=== PATIENT | male | born 1970 | race Caucasian/White ===

== ENCOUNTER 2021-03-02 21:06 | Inpatient (IN) | payer OTHER, BC ==
[~2021-03-02] VITALS: Ht 170.2 cm; Wt 128.4 kg
[2021-03-02] MEDS ORDERED: KAPVAY0.1 MG PO (21:18)
[2021-03-02] MEDS ORDERED: LASIX20 MG PO (21:18)
[2021-03-02] MEDS ORDERED: HYDRALAZIN20 MG/1 ML IJ (21:19)
[2021-03-02] MEDS ORDERED: EFFER-K 10 MEQ10 MEQ PO (21:19)
== END 2021-03-05 12:31 | disposition home or self-care (01) | DRG 292 ==
LOC: ER 21:06 → MEDJ 03-03 10:21 → MEDI 03-03 10:21
PROVIDERS: ADMIT Internal Medicine; ATTEND Internal Medicine
PROC: 4A12X4Z Monitoring of Cardiac Electrical Activity, External Approach (ICD-10-PCS; principal; 2021-03-03)
DX: I13.0 Hypertensive heart and chronic kidney disease with heart failure and stage 1 through stage 4 chronic kidney disease, or unspecified chronic kidney disease (principal); I16.9 Hypertensive crisis, unspecified; L97.829 Non-pressure chronic ulcer of other part of left lower leg with unspecified severity; I25.10 Atherosclerotic heart disease of native coronary artery without angina pectoris; I50.9 Heart failure, unspecified; Z95.5 Presence of coronary angioplasty implant and graft; F41.9 Anxiety disorder, unspecified; E66.9 Obesity, unspecified; E11.622 Type 2 diabetes mellitus with other skin ulcer; E87.6 Hypokalemia; E11.22 Type 2 diabetes mellitus with diabetic chronic kidney disease; N18.9 Chronic kidney disease, unspecified; J10.1 Influenza due to other identified influenza virus with other respiratory manifestations; Z20.822 Contact with and (suspected) exposure to COVID-19

== ENCOUNTER 2021-04-24 07:50 | Outpatient (CLI) | payer OTHER, BC ==
[~2021-04-24 07:50] MED LIST: EFFER-K 10 MEQ10 MEQ PO; HYDRALAZIN20 MG/1 ML IJ; KAPVAY0.1 MG PO; LASIX20 MG PO
[2021-04-28] MEDS ORDERED: NEURONTIN600 MG PO (13:15)
[2021-04-28] MEDS ORDERED: CATAPRES0.3 MG PO (13:17)
[2021-04-28] MEDS ORDERED: SPIRONOLACTONE25 MG PO (13:17)
[2021-04-28] MEDS ORDERED: TAMS0.4C PO (13:18)
[2021-04-28] MEDS ORDERED: CLOPIDOGREL BIS75 MG PO (13:18)
[2021-04-28] MEDS ORDERED: CARVEDILOL12.5 MG PO (13:18)
[2021-04-28] MEDS ORDERED: ATORVASTATIN CA40 MG PO (13:19)
[2021-04-28] MEDS ORDERED: GLIMEPIRIDE1 M1 PO (13:20)
[2021-04-28] MEDS ORDERED: PROCARDIA XL90 MG PO (13:23)
[2021-04-28] MEDS ORDERED: GABAPENTIN800 MG PO (13:25)
== END 2021-04-24 09:45 | disposition home or self-care (01) ==
LOC: WOUND MED 07:50
PROVIDERS: ATTEND Specialist
DX: E11.621 Type 2 diabetes mellitus with foot ulcer (principal); L97.822 Non-pressure chronic ulcer of other part of left lower leg with fat layer exposed; L97.812 Non-pressure chronic ulcer of other part of right lower leg with fat layer exposed; R60.0 Localized edema
CPT/HCPCS: 11042; 11045; A4554; A4930; A6216; A6266; G0463

== ENCOUNTER → 2021-04-24 10:54 | Outpatient (CLI) | payer OTHER, BC ==
[~2021-04-24 10:54] MED LIST changes: +ATORVASTATIN CA40 MG PO; +CARVEDILOL12.5 MG PO; +CATAPRES0.3 MG PO; +CLOPIDOGREL BIS75 MG PO; +GABAPENTIN800 MG PO; +GLIMEPIRIDE1 M1 PO; +NEURONTIN600 MG PO; +PROCARDIA XL90 MG PO; +SPIRONOLACTONE25 MG PO; +TAMS0.4C PO
== END | disposition home or self-care (01) ==
LOC: LAB 10:54
PROVIDERS: ATTEND Specialist
DX: E10.649 Type 1 diabetes mellitus with hypoglycemia without coma (principal)

== ENCOUNTER 2021-04-24 13:28 | Inpatient (IN) | payer OTHER, BC ==
[~2021-04-24] VITALS: Ht 172.7 cm; Wt 122.5 kg
[~2021-04-24 13:28] MED LIST changes: -ATORVASTATIN CA40 MG PO; -CARVEDILOL12.5 MG PO; -CATAPRES0.3 MG PO; -CLOPIDOGREL BIS75 MG PO; -GABAPENTIN800 MG PO; -GLIMEPIRIDE1 M1 PO; -NEURONTIN600 MG PO; -PROCARDIA XL90 MG PO; -SPIRONOLACTONE25 MG PO; -TAMS0.4C PO
[2021-04-28] MEDS ORDERED: NEURONTIN600 MG PO ×2 (13:15)
[2021-04-28] MEDS ORDERED: SPIRONOLACTONE25 MG PO ×2 (13:17)
[2021-04-28] MEDS ORDERED: CATAPRES0.3 MG PO ×2 (13:17)
[2021-04-28] MEDS ORDERED: TAMS0.4C PO ×2 (13:18)
[2021-04-28] MEDS ORDERED: CARVEDILOL12.5 MG PO ×2 (13:18)
[2021-04-28] MEDS ORDERED: CLOPIDOGREL BIS75 MG PO ×2 (13:18)
[2021-04-28] MEDS ORDERED: ATORVASTATIN CA40 MG PO ×2 (13:19)
[2021-04-28] MEDS ORDERED: GLIMEPIRIDE1 M1 PO ×2 (13:20)
[2021-04-28] MEDS ORDERED: PROCARDIA XL90 MG PO ×2 (13:23)
[2021-04-28] MEDS ORDERED: GABAPENTIN800 MG PO ×2 (13:25)
== END 2021-04-28 16:54 | disposition home or self-care (01) | DRG 683 ==
LOC: ER 13:28 → MEDI 04-25 12:00 → SEC-K 04-25 12:00 → MEDI 04-25 17:23
PROVIDERS: ADMIT Internal Medicine; ATTEND Internal Medicine
DX: N17.8 Other acute kidney failure (principal); L97.829 Non-pressure chronic ulcer of other part of left lower leg with unspecified severity; I13.0 Hypertensive heart and chronic kidney disease with heart failure and stage 1 through stage 4 chronic kidney disease, or unspecified chronic kidney disease; E87.6 Hypokalemia; E86.0 Dehydration; N18.9 Chronic kidney disease, unspecified; E11.622 Type 2 diabetes mellitus with other skin ulcer; I50.9 Heart failure, unspecified

== ENCOUNTER → 2021-04-29 13:27 | Outpatient (CLI) | payer OTHER, BC ==
[~2021-04-29 13:27] MED LIST changes: +ATORVASTATIN CA40 MG PO; +CARVEDILOL12.5 MG PO; +CATAPRES0.3 MG PO; +CLOPIDOGREL BIS75 MG PO; +GABAPENTIN800 MG PO; +GLIMEPIRIDE1 M1 PO; +NEURONTIN600 MG PO; +PROCARDIA XL90 MG PO; +SPIRONOLACTONE25 MG PO; +TAMS0.4C PO
== END | disposition home or self-care (01) ==
LOC: LAB 13:27
PROVIDERS: ATTEND Internal Medicine
DX: E11.9 Type 2 diabetes mellitus without complications (principal); E87.6 Hypokalemia; I73.89 Other specified peripheral vascular diseases; N17.8 Other acute kidney failure; I50.89 Other heart failure

== ENCOUNTER 2021-05-08 07:54 | Outpatient (CLI) | payer OTHER, BC | END 2021-05-08 09:53 | disposition home or self-care (01) | LOC: WOUND MED 07:54 | PROVIDERS: ATTEND Specialist | DX: E11.621 Type 2 diabetes mellitus with foot ulcer (principal); L97.822 Non-pressure chronic ulcer of other part of left lower leg with fat layer exposed; L97.812 Non-pressure chronic ulcer of other part of right lower leg with fat layer exposed; R60.0 Localized edema | CPT/HCPCS: 11042; A4554; A4930; A6216; A6266 ==

== ENCOUNTER 2021-05-13 15:07 | Outpatient (CLI) | payer OTHER, BC | END 2021-05-13 15:50 | disposition home or self-care (01) | LOC: WOUND MED 15:07 | PROVIDERS: ATTEND Specialist | DX: E11.621 Type 2 diabetes mellitus with foot ulcer (principal); L97.822 Non-pressure chronic ulcer of other part of left lower leg with fat layer exposed; L97.812 Non-pressure chronic ulcer of other part of right lower leg with fat layer exposed; R60.0 Localized edema | CPT/HCPCS: 97602; A4554; A4930; A6216; A6219 ==

== ENCOUNTER 2021-05-15 09:48 | Outpatient (CLI) | payer OTHER, BC | END 2021-05-15 10:30 | disposition home or self-care (01) | LOC: WOUND MED 09:48 | PROVIDERS: ATTEND Specialist | DX: E11.621 Type 2 diabetes mellitus with foot ulcer (principal); L97.822 Non-pressure chronic ulcer of other part of left lower leg with fat layer exposed; L97.812 Non-pressure chronic ulcer of other part of right lower leg with fat layer exposed; R60.0 Localized edema | CPT/HCPCS: 11042; A4554; A4930; A6216; A6219 ==

== ENCOUNTER 2021-05-15 11:53 | Outpatient (CLI) | payer OTHER, BC | END 2021-05-15 11:58 | disposition home or self-care (01) | LOC: RAD 11:53 | DX: E11.621 Type 2 diabetes mellitus with foot ulcer (principal) ==

== ENCOUNTER 2021-05-22 10:42 | Outpatient (CLI) | payer OTHER, BC | END 2021-05-22 11:37 | disposition home or self-care (01) | LOC: WOUND MED 10:42 | PROVIDERS: ATTEND Specialist | DX: E11.621 Type 2 diabetes mellitus with foot ulcer (principal); L97.822 Non-pressure chronic ulcer of other part of left lower leg with fat layer exposed; L97.812 Non-pressure chronic ulcer of other part of right lower leg with fat layer exposed; R60.0 Localized edema | CPT/HCPCS: 11042; 11045; A4554; A4930; A6216; A6219 ==